=== PATIENT | female | born 1970 | race Caucasian/White ===

== ENCOUNTER 2016-08-18 15:58 | Emergency (ER) | payer OTHER ==
--- NOTE | 2016-08-18 16:35 | ED NURSING NOTES ---
Clinical Report - Nurses [facility] [address] [place] [address] 08/18/2016 16:00 Patient: PANTERAJune TRIAGE Triage time 16:14. Acuity: LEVEL 4. Chief Complaint: LEFT EAR PAIN and NARES FORIEGN BODY, SINUS CONGESTION and (Sinus pain has been worse for the past 3 or 4 days, hx chronic sinus problems. Pt reports fever of 100.0.). SEPSIS SCREEN: Sepsis Screen. Negative (no infection suspected/documented). ROHITH COMA SCORE: Rohith Coma Scale: 15- eyes open spontaneously (4); best verbal response- oriented x 4 (5); best motor response- obeys commands (6). --16:21 Silvestre Parker R.N. 16:14 08/18/16. BP: 106/76 (large adult cuff) taken on the left arm, while lying. HR: 66. RR: 20. O2 saturation: 98% on room air. Temp: 98.3 F (oral). Pain level now: 08/14. --16:21 Silvestre Parker R.N. <<STRICKEN ENTRY-- 16:14 08/18/16. BP: 117 (large adult cuff) taken on the left arm, while lying. HR: 66. RR: 20. O2 saturation: 98% on room air. Temp: 98.3 F (oral). Pain level now: 08/14. --16:21 Silvestre Parker R.N. --END STRIKE>> Correction. --16:57 Silvestre Parker R.N. Weight: 116.1 kg stated. Height/Length: 66 inches Per Patient. BMI: 41.3. --16:16 Silvestre Parker R.N. Medications Citalopram Hydrobromide Oral 20 mg, daily. Lovastatin Oral (Tablet 20 mg), daily. Metoprolol 25, daily. Multivitamins Oral. --16:15 Silvestre Parker R.N. Allergies Aspirin.(swelling) --16:15 Silevstre Parker R.N. History Arrived by private vehicle. Historian: patient. Accompanied by family. 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 SOCIAL HX: Former smoker, end date 2006. No alcohol use or drug use. ABUSE ASSESSMENT: No report of abuse. --16:21 Silvestre Parker R.N. PROBLEMS: Bronchitis. Frequent Ear Infections. Otitis Media. URI. Sprain. Abnormal Test. Acute Pain. Tonsillitis. TMJ Syndrome. Acute Otalgia. Ear Infection. Pharyngitis. Fever. Strep Throat. Abscess. Infectious Mononucleosis. Dental Caries. Chalazion. Hyperlipidemia. Hypertension. Hypercholesterolemia. --16:16 Silvestre Parker R.N. ADDITIONAL SURGERIES: Bone grafts. Leg. Tubal Ligation. --16:16 Silvestre Parker R.N. Interventions ID band on patient. To treatment room. --16:21 Silvestre Parker R.N. PHYSICAL ASSESSMENT Ambulatory to room. GENERAL / NEURO / PSYCH: Alert. Appears in no acute distress. HEENT: No facial asymmetry noted. Left frontal, maxillary and ethmoid sinus tenderness present. Pupils equal, round and reactive to light. EOM intact. Abnormal ear exam (left ear pain). RESPIRATORY: Respirations not labored. CVS: Capillary refill less than 2 seconds. SKIN: Skin is warm and dry. --16:24 Silvestre Parker R.N. NURSING PROGRESS NOTES Head of bed elevated. Reassurance given. Two patient identifiers checked. Call light placed in reach. Bed placed in lowest position. Brakes of bed on. Patient ready for evaluation- chart flagged. --16:24 Silvestre Parker R.N. DISPOSITION / DISCHARGE Departure time: 1730. Condition at departure: unchanged. No learning barriers present. Discharge instructions provided and reviewed with the patient. Reviewed medication(s) information. Prescription(s) given to the patient. Reviewed referral to an ear, nose, and throat specialist (design manager) and family practice for followup. Verbalized understanding. Written instructions provided. The patient was discharged home. She left the Emergency Department ambulatory and via private vehicle. --17:34 Francie Son R.N. 17:31 08/18/16. BP: 125/75. HR: 66. RR: 18. O2 saturation: 99%. Temp: 98.9 F. Pain level now: 05/14. --17:34 Francie Son R.N. Locked/Released at 08/18/2016 17:34 by Francie Son R.N.
--- NOTE | 2016-08-18 16:35 | ED NURSING NOTES ---
Clinical Report - Nurses [facility] [address] [place] [address] 08/18/2016 16:00 Patient: PANTERAJune TRIAGE Triage time 16:14. Acuity: LEVEL 4. Chief Complaint: LEFT EAR PAIN and NARES FORIEGN BODY, SINUS CONGESTION and (Sinus pain has been worse for the past 3 or 4 days, hx chronic sinus problems. Pt reports fever of 100.0.). SEPSIS SCREEN: Sepsis Screen. Negative (no infection suspected/documented). ROHITH COMA SCORE: Rohith Coma Scale: 15- eyes open spontaneously (4); best verbal response- oriented x 4 (5); best motor response- obeys commands (6). --16:21 Silvestre Parker R.N. 16:14 08/18/16. BP: 106/76 (large adult cuff) taken on the left arm, while lying. HR: 66. RR: 20. O2 saturation: 98% on room air. Temp: 98.3 F (oral). Pain level now: 08/14. --16:21 Silvestre Parker R.N. <<STRICKEN ENTRY-- 16:14 08/18/16. BP: 117 (large adult cuff) taken on the left arm, while lying. HR: 66. RR: 20. O2 saturation: 98% on room air. Temp: 98.3 F (oral). Pain level now: 08/14. --16:21 Silvestre Parker R.N. --END STRIKE>> Correction. --16:57 Silvestre Parker R.N. Weight: 116.1 kg stated. Height/Length: 66 inches Per Patient. BMI: 41.3. --16:16 Silvestre Parker R.N. Medications Citalopram Hydrobromide Oral 20 mg, daily. Lovastatin Oral (Tablet 20 mg), daily. Metoprolol 25, daily. Multivitamins Oral. --16:15 Silvestre Parker R.N. Allergies Aspirin.(swelling) --16:15 Silvestre Parker R.N. History Arrived by private vehicle. Historian: patient. Accompanied by family. 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 SOCIAL HX: Former smoker, end date 2006. No alcohol use or drug use. ABUSE ASSESSMENT: No report of abuse. --16:21 Silvestre Parker R.N. PROBLEMS: Bronchitis. Frequent Ear Infections. Otitis Media. URI. Sprain. Abnormal Test. Acute Pain. Tonsillitis. TMJ Syndrome. Acute Otalgia. Ear Infection. Pharyngitis. Fever. Strep Throat. Abscess. Infectious Mononucleosis. Dental Caries. Chalazion. Hyperlipidemia. Hypertension. Hypercholesterolemia. --16:16 Silvestre Parker R.N. ADDITIONAL SURGERIES: Bone grafts. Leg. Tubal Ligation. --16:16 Silvestre Parker R.N. Interventions ID band on patient. To treatment room. --16:21 Silvestre Parker R.N. PHYSICAL ASSESSMENT Ambulatory to room. GENERAL / NEURO / PSYCH: Alert. Appears in no acute distress. HEENT: No facial asymmetry noted. Left frontal, maxillary and ethmoid sinus tenderness present. Pupils equal, round and reactive to light. EOM intact. Abnormal ear exam (left ear pain). RESPIRATORY: Respirations not labored. CVS: Capillary refill less than 2 seconds. SKIN: Skin is warm and dry. --16:24 Silvestre Parker R.N. NURSING PROGRESS NOTES Head of bed elevated. Reassurance given. Two patient identifiers checked. Call light placed in reach. Bed placed in lowest position. Brakes of bed on. Patient ready for evaluation- chart flagged. --16:24 Silvestre Parker R.N. DISPOSITION / DISCHARGE Departure time: 1730. Condition at departure: unchanged. No learning barriers present. Discharge instructions provided and reviewed with the patient. Reviewed medication(s) information. Prescription(s) given to the patient. Reviewed referral to an ear, nose, and throat specialist (claims coordinator) and family practice for followup. Verbalized understanding. Written instructions provided. The patient was discharged home. She left the Emergency Department ambulatory and via private vehicle. --17:34 Francie Son R.N. 17:31 08/18/16. BP: 125/75. HR: 66. RR: 18. O2 saturation: 99%. Temp: 98.9 F. Pain level now: 05/14. --17:34 Francie Son R.N. Locked/Released at 08/18/2016 17:34 by Francie Son R.N.
--- NOTE | 2016-08-18 16:35 | ED CLINICAL REPORT ---
Clinical Report - Physicians/Mid Levels [facility] [address] [place] [place] [address] 08/18/2016 16:00 Patient: PANTERAJune Time Seen: 16:18 Aug 18 2016. Arrived- By private vehicle. HISTORY OF PRESENT ILLNESS Chief Complaint: SINUS PAIN. This started 3 days and is still present. The patient has had fever (100.1 2 days prior). (patient reports a left-sided facial pain over the last 3-4 days, history of similar about 10 days previously was treated with antivirals, her symptoms improved over 24 hours after initiation of antibiotics, history of recurrence of such 3-4 incidences during her year span. Patient is starting new primary care next week, with [facility].). REVIEW OF SYSTEMS No headache, vomiting, abdominal pain or skin rash. All systems otherwise negative, except as recorded above. PAST HISTORY Problems: Bronchitis. Frequent Ear Infections. Otitis Media. URI. Sprain. Tetanus Status. Abnormal Test. Acute Pain. Tonsillitis. TMJ Syndrome. Acute Otalgia. Ear Infection. Pharyngitis. Fever. Strep Throat. Abscess. Infectious Mononucleosis. Dental Caries. Immunizations. Chalazion. Hyperlipidemia. LNMP - Last Normal Menstrual Period. Hypertension. Hypercholesterolemia. Medications: Citalopram Hydrobromide Oral 20 mg, daily. Lovastatin Oral (Tablet 20 mg), daily. Metoprolol 25, daily. Multivitamins Oral. Allergies: Aspirin.(swelling). SOCIAL HISTORY Former smoker. No alcohol use or drug use. PHYSICAL EXAM Appearance: Alert. No apparent distress. Head: Tenderness present to percussion/palpation of the sinuses. Eyes: Eyes normal inspection. ENT: Uvula midline. Normal ear exam. No nasal discharge, mouth ulcerations, peritonsillar mass, muffled or hoarse voice or trismus. (left tm unreamrakble). Neck: Normal inspection. No lymphadenopathy. CVS: Normal heart rate and rhythm. Heart sounds normal. Respiratory: No respiratory distress. Breath sounds normal. No retractions, splinting or rales. Abdomen: Soft. Neuro: Oriented X 3. No motor deficit. PROGRESS AND PROCEDURES Course of Care: Patient here in the emergency department with signs of acute sinusitis, with fever subjective in nature. Patient with headaches off and on over the last 2 days. With congestion. Patient with no rhinorrhea, therefore she usually does not have rhinorrhea. Patient at home has been using humidified air, steam Glory pot. 08/18/2016 16:14 BP: 106/76. HR: 66. RR: 20. O2 saturation: 98%. Temp: 98.3 F. Pain level now: 6/10. Patient is stable. Physical exam findings are improved. Patient/family counseled. Disposition: Discharged. Condition: good. CLINICAL IMPRESSION Recurrent sinusitis INSTRUCTIONS Drink plenty of fluids. Prescription Medications: Augmentin 875 mg: take 1 tablet orally every 12 hours for 10 days. No refill. Substitution is permissible. OTC Medications: Take OTC medications according to label instructions. Available over the counter. Motrin (available over the counter): take according to label instructions. Follow-up: Follow up with your doctor in three days. (Electronically signed by Samina Phelan P.A.-C 08/18/2016 17:06)
--- NOTE | 2016-08-18 16:35 | ED CLINICAL REPORT ---
Clinical Report - Physicians/Mid Levels [facility] [address] [place] [address] 08/18/2016 16:00 Patient: PANTERAJune Time Seen: 16:18 Aug 18 2016. Arrived- By private vehicle. HISTORY OF PRESENT ILLNESS Chief Complaint: SINUS PAIN. This started 3 days and is still present. The patient has had fever (100.1 2 days prior). (patient reports a left-sided facial pain over the last 3-4 days, history of similar about 10 days previously was treated with antivirals, her symptoms improved over 24 hours after initiation of antibiotics, history of recurrence of such 3-4 incidences during her year span. Patient is starting new primary care next week, with [facility] [place].). REVIEW OF SYSTEMS No headache, vomiting, abdominal pain or skin rash. All systems otherwise negative, except as recorded above. PAST HISTORY Problems: Bronchitis. Frequent Ear Infections. Otitis Media. URI. Sprain. Tetanus Status. Abnormal Test. Acute Pain. Tonsillitis. TMJ Syndrome. Acute Otalgia. Ear Infection. Pharyngitis. Fever. Strep Throat. Abscess. Infectious Mononucleosis. Dental Caries. Immunizations. Chalazion. Hyperlipidemia. LNMP - Last Normal Menstrual Period. Hypertension. Hypercholesterolemia. Medications: Citalopram Hydrobromide Oral 20 mg, daily. Lovastatin Oral (Tablet 20 mg), daily. Metoprolol 25, daily. Multivitamins Oral. Allergies: Aspirin.(swelling). SOCIAL HISTORY Former smoker. No alcohol use or drug use. PHYSICAL EXAM Appearance: Alert. No apparent distress. Head: Tenderness present to percussion/palpation of the sinuses. Eyes: Eyes normal inspection. ENT: Uvula midline. Normal ear exam. No nasal discharge, mouth ulcerations, peritonsillar mass, muffled or hoarse voice or trismus. (left tm unreamrakble). Neck: Normal inspection. No lymphadenopathy. CVS: Normal heart rate and rhythm. Heart sounds normal. Respiratory: No respiratory distress. Breath sounds normal. No retractions, splinting or rales. Abdomen: Soft. Neuro: Oriented X 3. No motor deficit. PROGRESS AND PROCEDURES Course of Care: Patient here in the emergency department with signs of acute sinusitis, with fever subjective in nature. Patient with headaches off and on over the last 2 days. With congestion. Patient with no rhinorrhea, therefore she usually does not have rhinorrhea. Patient at home has been using humidified air, steam Glory pot. 08/18/2016 16:14 BP: 106/76. HR: 66. RR: 20. O2 saturation: 98%. Temp: 98.3 F. Pain level now: 6/10. Patient is stable. Physical exam findings are improved. Patient/family counseled. Disposition: Discharged. Condition: good. CLINICAL IMPRESSION Recurrent sinusitis INSTRUCTIONS Drink plenty of fluids. Prescription Medications: Augmentin 875 mg: take 1 tablet orally every 12 hours for 10 days. No refill. Substitution is permissible. OTC Medications: Take OTC medications according to label instructions. Available over the counter. Motrin (available over the counter): take according to label instructions. Follow-up: Follow up with your doctor in three days. (Electronically signed by Samina Phelan P.A.-C 08/18/2016 17:06)
--- NOTE | 2016-08-18 17:34 | ED DISCHARGE INSTRUCTIONS ---
Patient: PANTERAJune General Instructions [facility] VisitID: [id number] [place] [address] 45y, F Registration Date/Time: 08/18/2016 Recurrent sinusitis INSTRUCTIONS Drink plenty of fluids. Prescription Medications: Augmentin 875 mg: take 1 tablet orally every 12 hours for 10 days. No refill. Substitution is permissible. OTC Medications: Take OTC medications according to label instructions. Available over the counter. Motrin (available over the counter): take according to label instructions. Follow-up: Follow up with your doctor in three days. ADDITIONAL INFORMATION Sinusitis [Abx Tx] The sinuses are air-filled spaces within the bones of the face. They connect to the inside of the nose. Sinusitis is an inflammation of the tissue lining the sinus cavity. Sinus inflammation can occur during a cold or hay-fever (allergies to pollens and other particles in the air) and cause symptoms of sinus congestion and fullness. A sinus infection causes fever, headache and facial pain. There is usually green or yellow drainage from the nose or into the back of the throat (post-nasal drip). Antibiotics are prescribed to treat this condition. Home Care: Drink plenty of water, hot tea, and other liquids to stay well hydrated. This thins the mucus and promotes sinus drainage. Apply heat to the painful areas of the face. Use a towel soaked in hot water. Or, surface miner the shower and direct the hot spray onto your face. This is a good way to inhale warm water vapor and get heat on your face at the same time. (Cover your mouth and nose with your hands so you can still breathe as you do this.) Use a vaporizer with products such as VicConfortVisuel VapoRub (contains menthol) at night. Suck on peppermint, menthol or eucalyptus hard candies during the day. An expectorant containing guaifenesin (such as Robitussin), helps to thin the mucus and promote drainage from the sinuses. Lmpr-[id number] decongestants may be used unless a similar medicine was prescribed. Nasal sprays work the fastest. Use one that contains phenylephrine (Yonathan-synephrine, Sinex and others) or oxymetazoline (Afrin). First blow the nose gently to remove mucus, then apply the drops. Do not use these medicines more often than directed on the label or for more than three days or symptoms may worsen. You may also use tablets containing pseudoephedrine (Sudafed). Many sinus remedies combine ingredients, which may increase side effects. Read the labels or ask the pharmacist for help. NOTE: Persons with high blood pressure should not use decongestants. They can raise blood pressure. Antihistamines are useful if allergies are a cause of your sinusitis. The mildest one is chlorpheniramine (available without a prescription). The dose for adults is 8-12mg three times a day. [NOTE: Do not use chlorpheniramine if you have glaucoma or if you are a man with trouble urinating due to an enlarged prostate.] Claritin (loratidine) is an antihistamine that causes less drowsiness and is a good alternative for daytime use. Do not use nasal rinses or irrigation during an acute sinus infection, unless advised by your doctor. Rinsing may spread the infection to other sinuses. You may use acetaminophen (Tylenol) or ibuprofen (Motrin, Advil) to control pain, unless another pain medicine was prescribed. [ NOTE: If you have chronic liver or kidney disease or ever had a stomach ulcer, talk with your doctor before using these medicines.] (Aspirin should never be used in anyone under 18 years of age who is ill with a fever. It may cause severe liver damage.) Finish the full course, even if you are feeling better after a few days. Follow Up with your doctor or this facility in one week or as instructed by our staff if not improving. Get Prompt Medical Attention if any of the following occur: Facial pain or headache becomes more severe Stiff neck Unusual drowsiness or confusion, or not acting like your normal self Swelling of the forehead or eyelids Vision problems including blurred or double vision Fever of 100.4F (38C) or higher, or as directed by your healthcare provider Seizure Amoxicillin Trihydrate, Clavulanate Potassium Oral tablet What is this medicine? AMOXICILLIN; CLAVULANIC ACID (a mox i ABIGAIL in; SLADE peterson ic id) is a penicillin antibiotic. It is used to treat certain kinds of bacterial infections. It will not work for colds, flu, or other viral infections. How should I use this medicine? Take this medicine by mouth with a full glass of water. Follow the directions on the prescription label. Take at the start of a meal. Do not crush or chew. If the tablet has a score line, you may cut it in half at the score line for easier swallowing. Take your medicine at regular intervals. Do not take your medicine more often than directed. Take all of your medicine as directed even if you think you are better. Do not skip doses or stop your medicine early. Talk to your microstrategy developer regarding the use of this medicine in children. Special care may be needed. What side effects may I notice from receiving this medicine? Side effects that you should report to your doctor or health rn long term care as soon as possible: allergic reactions like skin rash, itching or hives, swelling of the face, lips, or tongue breathing problems dark urine fever or chills, sore throat redness, blistering, peeling or loosening of the skin, including inside the mouth seizures trouble passing urine or change in the amount of urine unusual bleeding, bruising unusually weak or tired white patches or sores in the mouth or throat Side effects that usually do not require medical attention (report to your doctor or health rn long term care if they continue or are bothersome): diarrhea dizziness headache nausea, vomiting stomach upset vaginal or anal irritation What may interact with this medicine? allopurinol anticoagulants control pills methotrexate probenecid What if I miss a dose? If you miss a dose, take it as soon as you can. If it is almost time for your next dose, take only that dose. Do not take double or extra doses. Where should I keep my medicine? Keep out of the reach of children. Store at room temperature below 25 degrees C (77 degrees F). Keep container tightly closed. Throw away any unused medicine after the expiration date. What should I tell my health care provider before I take this medicine? They need to know if you have any of these conditions: bowel disease, like colitis kidney disease liver disease mononucleosis an unusual or allergic reaction to amoxicillin, penicillin, cephalosporin, other antibiotics, clavulanic acid, other medicines, foods, dyes, or preservatives or trying to get breast-feeding What should I watch for while using this medicine? Tell your doctor or health rn long term care if your symptoms do not improve. Do not treat diarrhea with over the counter products. Contact your doctor if you have diarrhea that lasts more than 2 days or if it is severe and watery. If you have diabetes, you may get a false-positive result for sugar in your urine. Check with your doctor or health rn long term care. control pills may not work properly while you are taking this medicine. Talk to your doctor about using an extra method of control. You have been given the following additional information: Sinusitis, Abx Tx Amoxicillin Trihydrate, Clavulanate Potassium Oral tablet (Electronically signed by Samina Phelan P.A.-C 08/18/2016 17:06)
--- NOTE | 2016-08-18 17:34 | ED DISCHARGE INSTRUCTIONS ---
Patient: PANTERAJune General Instructions [facility] VisitID: [id number] [place] [address] 45y, F Registration Date/Time: 08/18/2016 Recurrent sinusitis INSTRUCTIONS Drink plenty of fluids. Prescription Medications: Augmentin 875 mg: take 1 tablet orally every 12 hours for 10 days. No refill. Substitution is permissible. OTC Medications: Take OTC medications according to label instructions. Available over the counter. Motrin (available over the counter): take according to label instructions. Follow-up: Follow up with your doctor in three days. ADDITIONAL INFORMATION Sinusitis [Abx Tx] The sinuses are air-filled spaces within the bones of the face. They connect to the inside of the nose. Sinusitis is an inflammation of the tissue lining the sinus cavity. Sinus inflammation can occur during a cold or hay-fever (allergies to pollens and other particles in the air) and cause symptoms of sinus congestion and fullness. A sinus infection causes fever, headache and facial pain. There is usually green or yellow drainage from the nose or into the back of the throat (post-nasal drip). Antibiotics are prescribed to treat this condition. Home Care: Drink plenty of water, hot tea, and other liquids to stay well hydrated. This thins the mucus and promotes sinus drainage. Apply heat to the painful areas of the face. Use a towel soaked in hot water. Or, vp of global marketing the shower and direct the hot spray onto your face. This is a good way to inhale warm water vapor and get heat on your face at the same time. (Cover your mouth and nose with your hands so you can still breathe as you do this.) Use a vaporizer with products such as Vic12 Star Survival VapoRub (contains menthol) at night. Suck on peppermint, menthol or eucalyptus hard candies during the day. An expectorant containing guaifenesin (such as Robitussin), helps to thin the mucus and promote drainage from the sinuses. [id number] decongestants may be used unless a similar medicine was prescribed. Nasal sprays work the fastest. Use one that contains phenylephrine (Yonathan-synephrine, Sinex and others) or oxymetazoline (Afrin). First blow the nose gently to remove mucus, then apply the drops. Do not use these medicines more often than directed on the label or for more than three days or symptoms may worsen. You may also use tablets containing pseudoephedrine (Sudafed). Many sinus remedies combine ingredients, which may increase side effects. Read the labels or ask the pharmacist for help. NOTE: Persons with high blood pressure should not use decongestants. They can raise blood pressure. Antihistamines are useful if allergies are a cause of your sinusitis. The mildest one is chlorpheniramine (available without a prescription). The dose for adults is 8-12mg three times a day. [NOTE: Do not use chlorpheniramine if you have glaucoma or if you are a man with trouble urinating due to an enlarged prostate.] Claritin (loratidine) is an antihistamine that causes less drowsiness and is a good alternative for daytime use. Do not use nasal rinses or irrigation during an acute sinus infection, unless advised by your doctor. Rinsing may spread the infection to other sinuses. You may use acetaminophen (Tylenol) or ibuprofen (Motrin, Advil) to control pain, unless another pain medicine was prescribed. [ NOTE: If you have chronic liver or kidney disease or ever had a stomach ulcer, talk with your doctor before using these medicines.] (Aspirin should never be used in anyone under 18 years of age who is ill with a fever. It may cause severe liver damage.) Finish the full course, even if you are feeling better after a few days. Follow Up with your doctor or this facility in one week or as instructed by our staff if not improving. Get Prompt Medical Attention if any of the following occur: Facial pain or headache becomes more severe Stiff neck Unusual drowsiness or confusion, or not acting like your normal self Swelling of the forehead or eyelids Vision problems including blurred or double vision Fever of 100.4F (38C) or higher, or as directed by your healthcare provider Seizure Amoxicillin Trihydrate, Clavulanate Potassium Oral tablet What is this medicine? AMOXICILLIN; CLAVULANIC ACID (a mox i ABIGAIL in; SLADE peterson ic id) is a penicillin antibiotic. It is used to treat certain kinds of bacterial infections. It will not work for colds, flu, or other viral infections. How should I use this medicine? Take this medicine by mouth with a full glass of water. Follow the directions on the prescription label. Take at the start of a meal. Do not crush or chew. If the tablet has a score line, you may cut it in half at the score line for easier swallowing. Take your medicine at regular intervals. Do not take your medicine more often than directed. Take all of your medicine as directed even if you think you are better. Do not skip doses or stop your medicine early. Talk to your operations project manager regarding the use of this medicine in children. Special care may be needed. What side effects may I notice from receiving this medicine? Side effects that you should report to your doctor or health foster care social worker as soon as possible: allergic reactions like skin rash, itching or hives, swelling of the face, lips, or tongue breathing problems dark urine fever or chills, sore throat redness, blistering, peeling or loosening of the skin, including inside the mouth seizures trouble passing urine or change in the amount of urine unusual bleeding, bruising unusually weak or tired white patches or sores in the mouth or throat Side effects that usually do not require medical attention (report to your doctor or health foster care social worker if they continue or are bothersome): diarrhea dizziness headache nausea, vomiting stomach upset vaginal or anal irritation What may interact with this medicine? allopurinol anticoagulants control pills methotrexate probenecid What if I miss a dose? If you miss a dose, take it as soon as you can. If it is almost time for your next dose, take only that dose. Do not take double or extra doses. Where should I keep my medicine? Keep out of the reach of children. Store at room temperature below 25 degrees C (77 degrees F). Keep container tightly closed. Throw away any unused medicine after the expiration date. What should I tell my health care provider before I take this medicine? They need to know if you have any of these conditions: bowel disease, like colitis kidney disease liver disease mononucleosis an unusual or allergic reaction to amoxicillin, penicillin, cephalosporin, other antibiotics, clavulanic acid, other medicines, foods, dyes, or preservatives or trying to get breast-feeding What should I watch for while using this medicine? Tell your doctor or health foster care social worker if your symptoms do not improve. Do not treat diarrhea with over the counter products. Contact your doctor if you have diarrhea that lasts more than 2 days or if it is severe and watery. If you have diabetes, you may get a false-positive result for sugar in your urine. Check with your doctor or health foster care social worker. control pills may not work properly while you are taking this medicine. Talk to your doctor about using an extra method of control. You have been given the following additional information: Sinusitis, Abx Tx Amoxicillin Trihydrate, Clavulanate Potassium Oral tablet (Electronically signed by Samina Phelan P.A.-C 08/18/2016 17:06)
--- NOTE | 2016-08-18 17:35 | ED MED RECONCILIATION SUMMARY ---
Patient: June Medication Reconciliation Report [facility] VisitID: [id number] [address] [place] [address] 45y, F Registration Date/Time: 08/18/2016 Weight: 116.1 kg Height/Length: 66 in. BMI: 41.3 ALLERGIES: Aspirin The patient's Home Medications are listed below: THE FOLLOWING MEDICATIONS NEED TO BE RECONCILED: Citalopram Hydrobromide Oral 20 mg, daily Lovastatin Oral (20 mg), daily Metoprolol 25, daily Multivitamins Oral The source(s) of the original Home Medication information: Not obtained. The following Medications were given to the patient in the Emergency Department: None. The following Medications were prescribed to the patient: Take OTC medications according to label instructions. Available over the counter. -- Samina Phelan P.A.-Alma Delia Motrin (available over the counter): take according to label instructions. -- Samina Phelan P.A.-Alma Delia Augmentin 875 mg: take 1 tablet orally every 12 hours for 10 days. No refill. Substitution is permissible. -- Samina Phelan, P.A.-C
--- NOTE | 2016-08-18 17:35 | ED MAR SUMMARY ---
..... Medication Administration Record [facility] [address] [place], [place] [id number] Patient: PANTERAJune Visit ID: [id number] 45y, F Weight: 116.1 kg Height/Length: 66 in BMI: 41.3 ALLERGIES: Aspirin
--- NOTE | 2016-08-18 17:35 | ED MAR SUMMARY ---
..... Medication Administration Record [facility] [address] [place], [place] [id number] Patient: PANTERAJune Visit ID: [id number] 45y, F Weight: 116.1 kg Height/Length: 66 in BMI: 41.3 ALLERGIES: Aspirin
--- NOTE | 2016-08-18 17:35 | ED ORDER SUMMARY ---
..... Patient: June OrderSheet [facility] VisitID: [id number] [address] [place] [address] 45y, F Registration Date/Time: 08/18/2016 ORDER SHEET Weight: 116.1 kg (stated) Allergies: Aspirin GENERAL ORDERS: Vitals (BP) (16:54 08/18/2016 Anneliese Zambrano) (17:01 Guy Vann) MEDICATION ORDERS: IV FLUIDS: ORDER SHEET NOTES: [Electronically signed by Samina Phelan P.A.-C (17:06 08/18/2016)] [Electronically signed by Francie Son R.N. (17:34 08/18/2016)] [Electronically locked/signed by Francie Son R.N. (17:34 08/18/2016)]
--- NOTE | 2016-08-18 17:35 | ED ORDER SUMMARY ---
..... Patient: June OrderSheet [facility] VisitID: [id number] [address] [place] [address] 45y, F Registration Date/Time: 08/18/2016 ORDER SHEET Weight: 116.1 kg (stated) Allergies: Aspirin GENERAL ORDERS: Vitals (BP) (16:54 08/18/2016 Anneliese Zambrano) (17:01 Guy Vann) MEDICATION ORDERS: IV FLUIDS: ORDER SHEET NOTES: [Electronically signed by Samina Phelan P.A.-C (17:06 08/18/2016)] [Electronically signed by Francie Son R.N. (17:34 08/18/2016)] [Electronically locked/signed by Francie Son R.N. (17:34 08/18/2016)]
--- NOTE | 2016-08-18 17:35 | ED MED RECONCILIATION SUMMARY ---
Patient: June Medication Reconciliation Report [facility] VisitID: [id number] [address] [place] [address] 45y, F Registration Date/Time: 08/18/2016 Weight: 116.1 kg Height/Length: 66 in. BMI: 41.3 ALLERGIES: Aspirin The patient's Home Medications are listed below: THE FOLLOWING MEDICATIONS NEED TO BE RECONCILED: Citalopram Hydrobromide Oral 20 mg, daily Lovastatin Oral (20 mg), daily Metoprolol 25, daily Multivitamins Oral The source(s) of the original Home Medication information: Not obtained. The following Medications were given to the patient in the Emergency Department: None. The following Medications were prescribed to the patient: Take OTC medications according to label instructions. Available over the counter. -- Samina Phelan P.A.-Alma Delia Motrin (available over the counter): take according to label instructions. -- Samina Phelan P.A.-Alma Delia Augmentin 875 mg: take 1 tablet orally every 12 hours for 10 days. No refill. Substitution is permissible. -- Samina Phelan, P.A.-C
== END 2016-08-18 17:31 | disposition home or self-care (01) ==
LOC: ED SRH 15:58
DX: J32.9 Chronic sinusitis, unspecified (principal); E78.5 Hyperlipidemia, unspecified; E78.00 Pure hypercholesterolemia, unspecified; I10 Essential (primary) hypertension; Z79.899 Other long term (current) drug therapy; Z87.891 Personal history of nicotine dependence; Z88.8 Allergy status to other drugs, medicaments and biological substances